=== PATIENT | female | born 1945 | race Caucasian/White ===

== ENCOUNTER 2018-07-28 07:49 | Emergency (ER) | payer MEDICARE, OTHER ==
[2018-07-28 08:03] VITALS: BP 124/88; TEMP 99.2; O2SAT 97
--- NOTE | 2018-07-28 08:09 | ED.PDOC ---
History of Present Illness - General Chief Complaint: Upper Extremity Injury Stated Complaint: left wrist pain Time Seen by Provider: 07/28/18 08:08 Source: patient Exam Limitations: no limitations - History of Present Illness Initial Comments: Meliza Ferraro 73 y/o female stated that she slipped and fell on her tub at home last night on outstretch hand landing on left wrist.Denies head ,neck,chest , hip injuries.Had sharp constant pain after incident.denies numbness,weakness, blurry vision,passing out. Occurred: yesterday Pain - Upper Extremity: moderate: Hand, left Method of Injury: fell Improving Factors: rest Worsening Factors: movement Associated Symptoms: pain Allergies/Adverse Reactions: Allergies Codeine Adverse Reaction (Verified 07/28/18 08:02) Home Medications: Ambulatory Orders Citalopram Hydrobromide [CeleXA] 20 mg PO DAILY 07/28/18 Losartan Potassium & Hydrochlo [Losartan Potassium/Hydroc 100-12.5 mg] 1 tab PO DAILY 07/28/18 Tramadol HCl 50 mg PO Q6HRS #30 tab 07/28/18 amLODIPine BESYLATE [Norvasc] 10 mg PO DAILY 07/28/18 Review of Systems - Review of Systems Musculoskeletal: States: see HPI, joint pain - left wrist All other Systems: Reviewed and Negative, No Change from Baseline Past Medical History (General) - Patient Medical History Hx Stroke: No Hx Congestive Heart Failure: No Hx Hypertension: Yes Hx Diabetes: No Hx Cancer: Yes - Breast Surgical History: other - mastectomy left,rotator cuff left,hysterectomy,c- section - Vaccination History Hx Influenza Vaccination: Yes Hx Pneumococcal Vaccination: Yes - Social History Hx Tobacco Use: No Hx Alcohol Use: No Hx Substance Use: No Hx Depression: No Feels Threatened In Home Enviroment: No Hx Physical Abuse: No Hx Emotional Abuse: No Hx Suspected Abuse: No - Activities of Daily Living Patient Lives Alone: No Grooming Ability: Independent Eating (Feeding) Ability: Independent Toileting Ability: Independent - Female History Patient is a Female of Child Bearing Age (10 -59 yrs old): No Family Medical History - Family History Mother Family History: Unknown Living Status: Unknown Hx Family Hypertension: Yes - mom Hx Family Cancer: Yes - breast-sister Physical Exam - Physical Exam General Appearance: Alert, Comfortable, No apparent distress Eyes, Ears, Nose, Throat Exam: normal ENT inspection Neck: non-tender, full range of motion, supple Cardiovascular/Respiratory: regular rate, rhythm, no M/R/G, normal peripheral pulses, no JVD, normal breath sounds Abdominal Exam: non-tender, no organomegaly Back Exam: no CVA tenderness, no vertebral tenderness Shoulder Exam: normal inspection, non-tender, no evidence of injury Elbow/Forearm Exam: normal inspection, non-tender, no evidence of injury Wrist Exam: bone tenderness - left wrist, limited ROM - pain left wrist, soft tissue tenderness - left wrist Hand Exam: normal inspection, non-tender, no evidence of injury Neuro/Tendon: normal sensation, normal motor functions, normal tendon functions , responds to pain, no evidence tendon injury Mental Status: alert, oriented x 3 Skin Exam: normal color Progress - Progress Progress: 07/28/18 08:25 Vital Signs - 8 hr 07/28/18 07:59 Temperature 99.2 F Pulse Rate [ 115 H Right Brachial] Respiratory 20 Rate Blood Pressure 124/88 [Right Arm] O2 Sat by Pulse 97 Oximetry - EKG/XRAY/CT XRAY: forearm - wrist fracture left distal radius Procedures - Splinting Left Wrist Hand-Made Type: orthoglass Splint: wrist - splint left forearm /wrist Pre-Proc Neuro Vasc Exam: normal Post-Proc Neuro Vasc Exam: normal Progress: applied by nurses-posterior splint and arm sling Departure - Departure Clinical Impression: Fracture of distal end of radius Qualifiers: Encounter type: initial encounter Fracture type: closed Fracture morphology: unspecified fracture morphology Laterality: left Qualified Code(s): S52.502A - Unspecified fracture of the lower end of left radius, initial encounter for closed fracture Fall Qualifiers: Encounter type: initial encounter Qualified Code(s): W19.XXXA - Unspecified fall, initial encounter Time of Disposition: 08:30 Disposition: Discharge to Home or Self Care Condition: Fair Departure Forms: ED Discharge - Pt. Copy, Patient Portal Self Enrollment Instructions: Wrist Fracture (DC), Common Wrist Injuries (DC) Referrals: DARRYL PERALES [Primary Care Provider] - 1-2 Weeks Prescriptions: Tramadol HCl 50 mg PO Q6HRS #30 tab Home Medications: Ambulatory Orders Citalopram Hydrobromide [CeleXA] 20 mg PO DAILY 07/28/18 Losartan Potassium & Hydrochlo [Losartan Potassium/Hydroc 100-12.5 mg] 1 tab PO DAILY 07/28/18 Tramadol HCl 50 mg PO Q6HRS #30 tab 07/28/18 amLODIPine BESYLATE [Norvasc] 10 mg PO DAILY 07/28/18 Additional Instructions: Follow up with orthopedist of choice ;Return to ER as needed
--- NOTE | 2018-07-28 08:25 | RAD ---
EXAM DESCRIPTION: Wrist,Left 3 Views CLINICAL HISTORY: 73 years Female pain,swelling after fall COMPARISON: None TECHNIQUE: AP, lateral and oblique views of the left wrist are obtained. FINDINGS: OSSEOUS: The visualized osseous structures appear demineralized. There is an acute, slightly impacted, comminuted and intra-articular fracture of the distal radius. A tiny ossific density dorsal to the carpus on the lateral view could represent a small evulsion fracture of the triquetrum. The joint spaces are preserved. Eburnation and mild to moderate marginal osteophytosis in the first CMC joint and trapezioscaphoid joint suggest primary osteoarthritis. There is no evidence of marginal erosive changes to suggest an inflammatory arthritis. SOFT TISSUE: There is soft tissue swelling about the wrist No evidence of significant soft tissue calcifications. No radiopaque foreign bodies. IMPRESSION: Acute fracture of the distal radius as described. Tiny avulsion fracture of the triquetrum is not excludable. Remainder of findings as described above. Electronically signed by: Julianna Bello MD 07/28/2018 8:24 AM [facility]
== END 2018-07-28 08:44 | disposition home or self-care (01) ==
LOC: ER 07:49
DX: S52.502A Unspecified fracture of the lower end of left radius, initial encounter for closed fracture (principal); I10 Essential (primary) hypertension; Y92.002 Bathroom of unspecified non-institutional (private) residence as the place of occurrence of the external cause; W18.2XXA Fall in (into) shower or empty bathtub, initial encounter; Z85.3 Personal history of malignant neoplasm of breast; Z79.899 Other long term (current) drug therapy; Z88.5 Allergy status to narcotic agent

== ENCOUNTER → 2018-08-02 | Outpatient (CLI) | payer MEDICARE, OTHER ==
--- NOTE | 2018-08-03 11:03 | RAD ---
EXAM DESCRIPTION: Wrist,Left 3 Views CLINICAL HISTORY: 73 years, Female, PAIN IN LEFT WRIST COMPARISON: July 28, 2018 TECHNIQUE: Three views left wrist FINDINGS: Demonstrate an impacted intra-articular fracture of the distal radius with modest dorsal angulation. Advanced degenerative changes at the base of the thumb and index finger at the carpal/metacarpal articulation is unchanged. A definite fracture of the triquetrum is not confirmed. The distal ulna appears intact. No carpal dislocation or displacement is evident. IMPRESSION: 1. Impacted dorsally angulated intra-articular fracture of the distal radius with little change in comparison to prior study with no definite triquetral fracture identified on today's follow-up study. Electronically signed by: Toan Zapien MD 08/03/2018 11:02 AM [facility]
== END ==
LOC: RAD 09:08
PROVIDERS: ATTEND Orthopaedic Surgery
DX: S52.502A Unspecified fracture of the lower end of left radius, initial encounter for closed fracture (principal)

== ENCOUNTER → 2018-08-13 | Outpatient (CLI) | payer MEDICARE, OTHER ==
--- NOTE | 2018-08-13 09:18 | RAD ---
EXAM DESCRIPTION: Wrist,Left 3 Views CLINICAL HISTORY: 73 years, Female, LEFT WRIST PAIN COMPARISON: Previous study August 02, 2018 FINDINGS: Left wrist 3 x-ray views shows impacted fracture of the distal radius with moderate comminution and extension of the fracture line into the radiocarpal joint. This appears slightly more impacted with mildly increased dorsal angulation of the distal radial articular surface compared to previous studies (dorsal angulation 33 degrees on present study compared to 22 degrees on the previous study). Early callus formation suggests partial healing. Advanced degenerative changes are seen in the lateral carpus at the first carpometacarpal joint and scaphoid trapezial joint. On the lateral view, small well corticated fragment dorsal to the navicular appears chronic. IMPRESSION: Comminuted impacted fracture of the distal left radius with dorsal angulation as measured above. Electronically signed by: Flavio Pruitt MD 08/13/2018 9:16 AM [facility]
== END ==
LOC: RAD 08:50
PROVIDERS: ATTEND Orthopaedic Surgery
DX: S52.592A Other fractures of lower end of left radius, initial encounter for closed fracture (principal)

== ENCOUNTER → 2018-08-31 | Outpatient (CLI) | payer MEDICARE, OTHER ==
--- NOTE | 2018-08-31 09:30 | RAD ---
EXAM DESCRIPTION: Wrist,Left 3 Views CLINICAL HISTORY: 73 years, Female, CLOSED FX OF DISTAL END OF RADIUS COMPARISON: Previous x-ray of the left wrist August 13, 2018 FINDINGS: Left wrist 3 x-ray views is positive for fracture of the distal radius with impaction, comminution and splaying of fragments. On the lateral view, the degree of dorsal angulation and impaction appears stable. On the oblique view, fracture line extends into the radiocarpal joint and a prominent medial fragment is displaced approximately 3 mm as on previous study. No change in alignment since previous exam. Advanced degenerative changes in the lateral carpus appear chronic. Degenerative spurring at the head of the first metacarpal. IMPRESSION: Impacted comminuted fracture of the distal left radius with no change in alignment since previous study. Advanced arthritic changes of the lateral carpus and first metacarpal phalangeal joint. Electronically signed by: Flavio Pruitt MD 08/31/2018 9:29 AM [facility]
== END ==
LOC: RAD 09:15
PROVIDERS: ATTEND Orthopaedic Surgery
DX: S52.502D Unspecified fracture of the lower end of left radius, subsequent encounter for closed fracture with routine healing (principal)

== ENCOUNTER → 2018-09-04 | Outpatient (CLI) | payer MEDICARE, OTHER ==
--- NOTE | 2018-09-04 16:08 | MRI ---
EXAM DESCRIPTION: Lumbar Spine w/o Contrast : Magnetic Resonance Imaging. CLINICAL HISTORY: RADICULOPATHY COMPARISON: Reportedly CT scan lumbar spine 01/13/2013. TECHNIQUE: Multiplanar, multiple standard sequences, non contrast MRI, lumbar spine. FINDINGS: L5-S1: Moderate disc space loss. Disc desiccation. 2 mm grade 1 anterolisthesis. Posterior minimal disc osteophyte bulge bilateral in the lateral canal and the foramina with moderate narrowing on the left and borderline stenosis on the right. Bilateral moderate facet arthrosis and flavum ligament hypertrophy with mild to moderate canal narrowing. Bilateral deformity L5 pars. Modic endplate changes type I. Tarlov cysts bilaterally at the S2-S3 level. Focal hyperintense T1 and T2 signal in the right S1 body. L4-L5: Disc desiccation and minimal disc space loss. Right paracentral 4 mm disc bulge. Bilateral facet arthrosis and ligament hypertrophy. Mild canal narrowing. Bilateral foramina are patent. L3-4: Disc desiccation and minimal disc space loss. 2 mm grade 1 retrolisthesis. 4 mm bulging disc. Minimal flavum ligament hypertrophy with facet arthrosis. Bilateral mild foraminal narrowing. L2-3: Anterior Modic type II endplate reactive changes. No disc space loss. Minimal disc desiccation. Posterior broad-based 4 mm disc bulge. Minimal flavum ligament hypertrophy and facet arthrosis. Mild left foraminal narrowing with right foramen patent. L1-2: Disc desiccation with anterior bulging and spurs. Disc space preserved. Tiny posterior bulge. Flavum ligament hypertrophy. Canal is patent. Mild bilateral foraminal narrowing. Conus terminates at this level. T12-L1: Old depression deformity of the superior L1 endplate with Schmorl's node. No significant retropulsion. Normal marrow signal. Tiny posterior disc bulge no canal stenosis or foraminal stenosis. T11-T12: Anterior disc space loss and bulging. Modic type II endplate reactive changes. No posterior disc bulging. Canal and foramina are patent. Mild dextroscoliosis L2-L5. Paravertebral soft tissues negative.. Normal marrow signal in the remaining vertebral bodies and the posterior elements. Vertebral bodies are not compressed at any level. IMPRESSION: 1. L5-S1 borderline foraminal stenosis right, correlate for right L5 radiculopathy. Bilateral moderate facet arthrosis and ligament hypertrophy disc bulge and grade 1 anterolisthesis. Bilateral L5 pars deformity most likely spondylolysis. 2. Right paracentral L4-5 disc bulge but no canal stenosis or nerve impingement. 3. 2 mm grade 1 retrolisthesis at L3-4 with 4 mm bulging disc. No canal or foraminal stenosis. 4. Posterior broad-based 4 mm L2-3 disc bulge. No canal or foraminal stenosis. 5. Old depression deformity of the superior L1 endplate Schmorl's node, described on the prior CT scan. No canal or foraminal stenosis. Electronically signed by: Viet Mo MD 09/04/2018 4:07 PM [facility]
== END ==
LOC: MRI 10:00
PROVIDERS: ATTEND Orthopaedic Surgery
DX: M51.16 Intervertebral disc disorders with radiculopathy, lumbar region (principal); M51.46 Schmorl's nodes, lumbar region